=== PATIENT | male | born 1955 | race Asian ===

== ENCOUNTER → 2016-12-27 | Outpatient (CLI) | payer OTHER | END | disposition home or self-care (01) | LOC: CT 11:01 | PROC: BW28ZZZ Computerized Tomography (CT Scan) of Head (ICD-10-PCS; principal; 2016-12-27) | PROC: BW20ZZZ Computerized Tomography (CT Scan) of Abdomen (ICD-10-PCS; 2016-12-27) | DX: R41.3 Other amnesia (principal); K75.9 Inflammatory liver disease, unspecified ==

== ENCOUNTER → 2017-01-14 | Outpatient (CLI) | payer OTHER | END | disposition home or self-care (01) | LOC: MI 08:35 | PROC: B030ZZZ Magnetic Resonance Imaging (MRI) of Brain (ICD-10-PCS; principal; 2017-01-14) | DX: R41.3 Other amnesia (principal); R47.02 Dysphasia; R51 Headache ==

== ENCOUNTER → 2017-01-18 | Outpatient (CLI) | payer OTHER | END | disposition home or self-care (01) | LOC: RD 18:20 | PROC: BW24ZZZ Computerized Tomography (CT Scan) of Chest and Abdomen (ICD-10-PCS; principal; 2017-01-18) | DX: Z87.891 Personal history of nicotine dependence (principal) ==

== ENCOUNTER → 2017-01-22 | Outpatient (CLI) | payer OTHER | END | disposition home or self-care (01) | LOC: LB 19:06 | DX: B19.10 Unspecified viral hepatitis B without hepatic coma (principal) ==

== ENCOUNTER 2017-02-10 19:14 | Inpatient (IN) | payer OTHER ==
[~2017-02-10] VITALS: Ht 170.2 cm; Wt 60.3 kg
[2017-02-10 20:39] LABS: BASOPHIL % 0.4 % (0-2); PLATELET COUNT 198 x10^3mcL (130-400)
[2017-02-10 20:40] LABS: RED CELL DISTRIBUTION WIDTH 14.9 % (11.5-14.5)
--- NOTE | 2017-02-10 20:45 | NUR ---
PT TO ED VIA TRIAGE FOR C/O CP SINCE 1500 TODAY STATES RESOLVED NOW HAD PRESSURE IN CENTER OF CHEST, NO CARDIAC HX, NO TRAUMA, NO MEDICATIONS. PT ON MONITOR VSS, EKG DONE, XRAY DONE LABS DRAWN AWAIT FURTHER ORDERS AND DISPO.
[2017-02-10 20:50] LABS: CALCIUM 9.4 mg/dL (8.5-10.1); CARBON DIOXIDE 29.4 mmol/L (21-32); CHLORIDE SERUM 106 mmol/L (98-107); CREATININE SERUM 0.9 mg/dL (0.7-1.3); GFR1 > 60 mL/min; GLUCOSE SERUM 141 mg/dL (74-106); POTASSIUM SERUM 4.5 mmol/L (3.5-5.1); SODIUM SERUM 142 mmol/L (136-145)
[2017-02-10 20:54] LABS: ALBUMIN 3.8 g/dL (3.4-5.0); ALKALINE PHOSPHATASE 61 U/L (46-116); ALT/SGPT 32 U/L (16-63); AST/SGOT 20 U/L (15-37); BILIRUBIN TOTAL 0.3 mg/dL (0.20-1.00); TOTAL PROTEIN, SERUM 7.5 g/dL (6.4-8.2)
--- NOTE | 2017-02-10 21:07 | NUR ---
SL STARTED ALL ORDERS DONE PER MD CONT TO MONITOR PT NO C/O PAIN AT THIS TIME VSS
--- NOTE | 2017-02-10 21:19 | NUR ---
PT MEDICATED PER MD CRITICAL RESULTS GIVEN TO MD TROPONIN ELEVATED PER LAB, 0.591
--- NOTE | 2017-02-10 22:30 | NUR ---
PT RESTING, DENIES PAIN VSS, AWAIT BED CONT TO MONITOR
[2017-02-10] MEDS ORDERED: METFORMIN (23:25)
[2017-02-10] MEDS ORDERED: LOSARTEN PO (23:26)
[2017-02-10] MEDS ORDERED: GLIPIZIDE (23:26)
[2017-02-10] MEDS ORDERED: METFORMIN PO (23:27)
--- NOTE | 2017-02-10 23:29 | NUR ---
REPORT CALLED TO [facility], ALL QUESTIONS ASKED AND ANSWERED, PT TRANSFERED TO FLOOR IN STABLE CONDITION VIA [facility] ON MONITOR WITH RN AND ALL PERSONAL BELONGINGS
[2017-02-10 23:32] LABS: PHOSPHOROUS 3.4 mg/dL (2.5-4.9)
[2017-02-10 23:47] VITALS: BP 136/72
[2017-02-10 23:49] LABS: FREE THYROXINE INDEX 2.6 ug/dL (1.4-4.5); T4(THYROXINE) 6.9 ug/dL (4.7-13.3)
--- NOTE | 2017-02-11 00:03 | NUR ---
RECEIVED PT FROM ER VIA [facility] ACCOMPANIED WITH NURSE, EMT AND PT'S , PT SEEN, ALERT AND ORIENTED, DENIES HEADACHE OR DIZZINESS, BREATHING EVEN AND UNLABORED, NO SOB, LUNG SOUNDS CLEAR, ON O2 2L VIA NC WITH NO RESP DISTRESS NOTED, ON TELE#22 NSR/SA, DENIES CHEST PAIN BUT PT WITH ELEVATED TROP, SL TO RAC, PULSES PALPABLE, NO EDEMA NOTED, SCD TO BLE, AMBULATORY WITH STEADY GAIT, ABD SOFT AND FLAT WITH ACTIVE BS, NO BM AT THIS TIME, DENIES ANY PROBLEM WITH VOIDING, PRIMARY NURSE-LOVELEE AT BEDSIDE WITH CONT CARE.
[2017-02-11 00:16] LABS: T3 TOTAL 0.92 ng/mL
[2017-02-11] MEDS ORDERED: GLYBURIDE2.5 MG PO (00:24)
--- NOTE | 2017-02-11 02:00 | NUR ---
PT STARTED ON IV HEPARIN WITH LOADING DOSE OF 3,600 UNITS. IV HEPARIN INFUSING AT 700 UNITS/HR. IV NS INFUSING WELL AT 100 ML/HR. DENIES ANY CHEST PAIN AT THIS TIME. REMAINS ON O2 2L VIA NC. NO S/S OF DISTRESS OR DISCOMFORT NOTED. CALL LIGHT WITHIN REACH. WILL CONTINUE TO MONITOR.
--- NOTE | 2017-02-11 04:04 | NUR ---
DR. MOE NOTIFIED AND AWARE OF CT ABD/PELVIS RESULTS.
[2017-02-11 05:34] VITALS: BP 100/64
--- NOTE | 2017-02-11 06:02 | NUR ---
PT SLEPT WELL THROUGH THE NIGHT. REMAINS ON O2 2L VIA NC. NO S/S OF RESPIRATORY DISTRESS NOTED. AWAKE AND ALERT AT THIS TIME. VERBAL WITH CLEAR SPEECH. DENIES ANY CHEST PAIN. IV HEPARIN AND NS INFUSING WELL. NO S/S OF DISTRESS NOTED. CALL LIGHT WITHIN REACH. WILL CONTINUE TO MONITOR.
--- NOTE | 2017-02-11 06:55 | NUR ---
RECEIVED CRITICAL LAB TROP 0.554. DR. NAIR GIVEN COPY OF LAB RESULT, NOTIFIED AND AWARE.
--- NOTE | 2017-02-11 07:48 | NUR ---
A+OX4, DENIES CHEST PAIN, PAIN IN GENERAL, NAUSEA, SOB, AND HEADACHE, NO RESPIRATORY DISTRESS NOTED, TELE 22, PULSES MODERATE AND EQUAL ANSELMO, NO EDEMA PRESENT, LUNG SOUNDS CTA, 2 L NC, BOWEL SOUNDS ACTIVE, VOIDING VIA URINAL, AMBULATORY, SKIN INTACT, IV IN RAC WITH NS @ 100 ML/HR, SITE WNL, HEPARIN DRIP @ 700 UNITS/HR, TROP 0.554, A1C 7.5.
--- NOTE | 2017-02-11 07:54 | NUR ---
A+OX3, CONFUSED, YAVAPAI-APACHE BOTH EARS, NO RESPIRATORY DISTRESS NOTED, IN NO APPARANT PAIN, TELE 31, PULSES MODERATE AND EQUAL ANSELMO, NO EDEMA PRESENT, SCDS ON, LUNG SOUNDS DIMINISHED, TOLERATING RA, BOWEL SOUNDS HYPOACTIVE, INCONTINENT, GENERALIZED WEAKNESS, [place] BUTTOCKS, PROGRESSIVE CARE MANAGER, Z GUARD BEING USED, IV IN RFA WITH NS @ 80 ML/HR, SITE WNL, MG 2.9, WBC 22.2, RBC 3.69, HGB 11.1, HCT 35.
--- NOTE | 2017-02-11 09:52 | NUR ---
PT RESTING IN BED, DENIES CHEST PAIN AND SOB, AMBULATED TO BATHROOM AND BACK TO BED, NO RESPIRATORY DISTRESS NOTED. BROTHER AT BEDSIDE
--- NOTE | 2017-02-11 10:31 | NUR ---
PTT 54.2, NO CHANGE TO HEPARIN DRIP. HEPARIN DRIP WILL REMAIN AT 700 UNITS/HR.
--- NOTE | 2017-02-11 10:38 | NUR ---
PT RESTING IN BED, NO RESPIRATORY DISTRESS NOTED, DENIES CHEST PAIN AND SOB.
[2017-02-11 10:48] VITALS: BP 121/73
[2017-02-11 11:03] LABS: BASOPHIL % 0.3 % (0-2); PLATELET COUNT 182 x10^3mcL (130-400)
[2017-02-11 11:06] LABS: RED CELL DISTRIBUTION WIDTH 14.6 % (11.5-14.5)
[2017-02-11 11:24] LABS: CALCIUM 8.7 mg/dL (8.5-10.1); CARBON DIOXIDE 27.1 mmol/L (21-32); CHLORIDE SERUM 108 mmol/L (98-107); CREATININE SERUM 0.8 mg/dL (0.7-1.3); GFR1 > 60 mL/min; GLUCOSE SERUM 150 mg/dL (74-106); PHOSPHOROUS 3.3 mg/dL (2.5-4.9); POTASSIUM SERUM 4.3 mmol/L (3.5-5.1); SODIUM SERUM 143 mmol/L (136-145)
--- NOTE | 2017-02-11 11:32 | NUR ---
PT AMBULATED TO BATHROOM AND BACK TO BED, NO RESPIRATORY DISTRESS NOTED, DENIES CHEST PAIN AND SOB, FAMILY AT BEDSIDE AWAITING DR CLOUD.
--- NOTE | 2017-02-11 13:35 | NUR ---
PT RESTING IN BED, NO RESPIRATORY DISTRESS NOTED, DENIES CHEST PAIN AND SOB.
--- NOTE | 2017-02-11 14:24 | NUR ---
PTT 39.0, PER HEPARIN PROTOCOL PT REBOLUSED 2400 UNITS, AND HEPARIN DRIP INCREASED BY 100 UNITS/HR FROM 700 UNITS/HR TO 800 UNITS/HOUR.
[2017-02-11 14:30] VITALS: BP 137/84
--- NOTE | 2017-02-11 14:45 | NUR ---
PT RESTING IN BED, NO RESPIRATORY DISTRESS NOTED, DENIES CHEST PAIN AND SOB.
--- NOTE | 2017-02-11 15:41 | NUR ---
PT RESTING IN BED, NO RESPIRATORY DISTRESS NOTED, DENIES CHEST PAIN AND SOB. SON AT BEDSIDE INQUIRING ABOUT DR CLOUD.
--- NOTE | 2017-02-11 17:14 | NUR ---
PT RESTING IN BED, NO RESPIRATORY DISTRESS NOTED, DR CLOUD IN TO SPEAK TO PT AND FAMILY.
[2017-02-11 17:27] VITALS: BP 144/83
--- NOTE | 2017-02-11 17:48 | NUR ---
PT RESTING IN BED, NO RESPIRATORY DISTRESS NOTED, DENIES CHEST PAIN AND SOB.
--- NOTE | 2017-02-11 18:11 | NUR ---
PTT 72.3, PER HEPARIN PROTOCOL, HEPARIN DRIP REDUCED BY 100 UNITS/HR FROM 800 UNITS TO 700 UNITS/HR.
--- NOTE | 2017-02-11 18:15 | NUR ---
PT RESTING IN BED, NO RESPIRATORY DISTRESS NOTED, DENIES CHEST PAIN AND SOB.
--- NOTE | 2017-02-11 19:35 | NUR ---
RECEIVED PT ALERT AND AWAKE. RESTING IN BED WITH HOB SLIGHTLY ELEVATED. VERBAL WITH CLEAR SPEECH. AOX4. NO S/S OF RESPIRATORY DISTRESS NOTED. LUNGS CLEAR BILATERALLY. ON TELE 22, NSR. DENIES ANY CHEST PAIN AT THIS TIME. ABD SOFT AND FLAT. SKIN WARM AND DRY. IV PATENT AND INTACT TO RIGHT AC. IV HEPARIN INFUSING WELL AT 700 ML/HR. AWAITING LAB DRAW AND RESULTS FOR NEXT PTT. NO EDEMA NOTED. SCDS IN PLACE. DENIES ANY PAIN OR DISCOMFORT AT THIS TIME. NO S/S OF DISTRESS NOTED. CALL LIGHT WITHIN REACH. WILL CONTINUE TO MONITOR.
[2017-02-11 20:57] VITALS: BP 127/70
[2017-02-11 21:23] LABS: microscopic required? NO
[2017-02-11 21:40] LABS: UA SPECIFIC GRAVITY <=1.005 (1.005-1.035); urine erythrocyte NEGATIVE (NEGATIVE)
--- NOTE | 2017-02-11 22:30 | NUR ---
PT RESTING IN BED WITH EYES CLOSED. BREATHING EQUAL AND UNLABORED. NO S/S OF RESPIRATORY DISTRESS NOTED ON ROOM AIR. LAB RESULTS FOR PTT 59.2. WITHIN THERAPEUTIC RANGE; NO CHANGE AT THIS TIME. IV HEPARIN INFUSING WELL AT 700 UNITS/HR TO RIGHT AC. NO S/S OF DISTRESS NOTED. RESTING COMFORTABLY WITH RELAXED FACIAL FEATURES. CALL LIGHT WITHIN REACH. WILL CONTINUE TO MONITOR. DR. MOE NOTIFIED AND AWARE OF RECENT PTT RESULTS.
[2017-02-12] VITALS (7 sets, daily range): BP systolic 128–169; BP diastolic 74–84; Ht 170.2 cm; Wt 60.3 kg
--- NOTE | 2017-02-12 03:15 | NUR ---
NOTED PTT LAB RESULT 47.3; NO CHANGE AT THIS TIME. SECOND THERAPEUTIC RESULT. IV HEPARIN INFUSING WELL AT 700 ML/HR. DR. MOE NOTIFIED AND AWARE.
[2017-02-12 06:44] LABS: PLATELET COUNT 180 x10^3mcL (130-400)
--- NOTE | 2017-02-12 06:45 | NUR ---
PT SLEPT WELL THROUGH THE NIGHT. EASILY AROUSED WHEN NAME CALLED. ALERT AND VERBAL WITH CLEAR SPEECH. IV HEPARIN INFUSING TO RIGHT AC AT 700 UNITS/HR. ADDITIONAL IV STARTED TO RIGHT FA. DENIES ANY CHEST PAIN OR DISCOMFORT AT THIS TIME. REMAINS NPO FOR RIGHT AND LEFT CARDIAC CATHERIZATION SCHEDULED TODAY. NO S/S OF DISTRESS NOTED. CALL LIGHT WITHIN REACH. WILL CONTINUE TO MONITOR.
[2017-02-12 06:51] LABS: RED CELL DISTRIBUTION WIDTH 14.6 % (11.5-14.5)
[2017-02-12 06:59] LABS: CALCIUM 9.3 mg/dL (8.5-10.1); CARBON DIOXIDE 30.2 mmol/L (21-32); CHLORIDE SERUM 106 mmol/L (98-107); GFR1 > 60 mL/min; GLUCOSE SERUM 132 mg/dL (74-106); POTASSIUM SERUM 4.3 mmol/L (3.5-5.1); SODIUM SERUM 142 mmol/L (136-145)
--- NOTE | 2017-02-12 08:00 | NUR ---
ALERT AND ORIENTED. TELE #22. PULSES PRESENT AND EQUAL, NO EDEMA NOTED. LUNG SOUNDS CTA, DENIES CHEST PAIN. BS ACTIVE LBM 02/12/17, REPORTS NORMAL FOR PATIENT. VOIDS FREELY, BRP, ABLE TO MOVE ALL ETREMETIES. SKIN WARM DRY AND INTACT. REPORTS NO PAIN AT THIS TIME.IV TO RAC AND RFA, WNL. HEPARIN 700 UNITS RUNNING TO RAC, RFA SL
--- NOTE | 2017-02-12 08:54 | NUR ---
IV HEPARIN STOPPED PER DR ORDERS. IV RAC SL, WNL
--- NOTE | 2017-02-12 10:11 | NUR ---
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 DR. ESPINOZA MADE AWARE
--- NOTE | 2017-02-12 11:40 | NUR ---
PRE OP CHECKLIST DONE, IV D/C RFA, CATHETER INTACT, IV INSERTED IN LAC, PATENT AND INTACT. CHG WASH DONE ON EXREMETIES. REPORT GIVEN TO ABRASIVE GRADER NURSE, CHART WITH PATIENT, PATIENT GOING DOWN TO PROCEDURE
--- NOTE | 2017-02-12 14:00 | NUR ---
RECIEVED PATIENT BACK FROM [facility]ER[facility] TILE INSTALL[facility], NO DISTRESS NOTED, CMS PRESENT EQUALLY BUE, NO BLEEDING TO RIGHT WRIST NOTED, TR BAND RIGHT WRIST WITH WRIST GUARD ON WITH 16 OF AIR
[2017-02-12] MEDS ORDERED: HEP100I IV (16:24)
[2017-02-12] MEDS ORDERED: NIT0.4 SL ×2 (16:25→16:26)
[2017-02-12] MEDS ORDERED: HEP5I IV (16:25)
[2017-02-12] MEDS ORDERED: LIPI10 PO (16:25)
[2017-02-12] MEDS ORDERED: METOPROLOL TART25 M1 PO (16:26)
[2017-02-12] MEDS ORDERED: COZ50 PO (16:26)
[2017-02-12] MEDS ORDERED: APAP/HYDROCODON1 T13 PO (16:27)
[2017-02-12] MEDS ORDERED: MOR2I IV (16:27)
[2017-02-12] MEDS ORDERED: ECO81 PO (16:27)
[2017-02-12] MEDS ORDERED: BG FS (16:28)
[2017-02-12] MEDS ORDERED: AMB5 PO (16:28)
[2017-02-12] MEDS ORDERED: TYL325 PO (16:28)
[2017-02-12] MEDS ORDERED: DEXPF IV (16:28)
[2017-02-12] MEDS ORDERED: ZOFI IV (16:29)
[2017-02-12] MEDS ORDERED: LAC PO (16:29)
[2017-02-12] MEDS ORDERED: COL100 PO (16:29)
[2017-02-12] MEDS ORDERED: METFORMIN HCL1000 MG PO (16:29)
[2017-02-12] MEDS ORDERED: DIA2.5 PO (16:30)
[2017-02-12] MEDS ORDERED: LEVEMIR100 U/M1 SC (16:30)
[2017-02-12] MEDS ORDERED: HUMULIN R100 U/1 M1 SC (16:30)
[2017-02-12] MEDS ORDERED: THERA TABS1 TAB PO (16:31)
[2017-02-12] MEDS ORDERED: SYN25 PO (16:31)
--- NOTE | 2017-02-12 16:35 | NUR ---
8ML OF AIR TAKEN OUT SLOWY WITH SYRINGE, NO BEEDING NOTED. LET 5 MINUTES PASS AND LAST 8ML OF AIR TAKEN OUT. NO BLEEDING NOTED. CMS PRESENT TO E EQUALLY. PATIENT DENIES CHEST PAIN. IV FLUIDS TO LEFT AC, NS @100, SITE WNL
--- NOTE | 2017-02-12 16:45 | NUR ---
SPOKE WITH DR ESPINOZA AND INFORMED THAT TR BAND WAS REMOVED AND NO BLEEDING AT PUNCTURE SITE. PATIENT DENIED NUMBNESS, TINGLING OR PAIN AT RT ARM. ARM BOARD REMAINED IN PLACED. DR ESPINOZA MADE AWARE THAT PER HEMANT -CUSTOM CLOTHIER, PATIENT WILL BE TRANSFERRED TO [facility] AT 18:[address] ESPINOZA WHO CHECKED WITH DR LIANG NO HEPARIN DRIP TO CONTINUE AT THIS TIME AND NO HEPARIN FOR THE DURATION OF TRANSPORT. CUSTOM CLOTHIER HEMANT NOTIFIED. ATTENDING NURSE VANESSA AWARE. PATIENT AND PATIENT FAMILY INFORMED ABOUT TRANSFER ARRANGEMENTS.
[2017-02-12] MEDS ORDERED: HIB240 TP (17:22)
[2017-02-12] MEDS ORDERED: BACTROBAN21 (17:22)
--- NOTE | 2017-02-12 17:39 | NUR ---
CMS PRESENT BUE AND BLE, PULSE EQUAL AND STRONG X4, BANDAID ON RIGHT WRIST CDI. DENEIS NUMBNESS AND TINGLING
--- NOTE | 2017-02-12 18:48 | NUR ---
PATIENT LEAVING WITH [facility] FOR TRANSFER. WITNESS CONSENT TO TRANSFER. BELONGINGS WITH PATIENT. CMS PRESENT ON ALL EXTREMETIES PULSES STONG AND EQUAL. DENIES CHEST PAIN. TRANFER PAPERWORK WITH PATIENT.
== END 2017-02-12 18:35 | disposition short-term general hospital (02) | DRG 282 ==
LOC: ED 19:14 → DU 21:55
PROVIDERS: Emergency Medicine; Internal Medicine Interventional Cardiology; ADMIT Family Medicine
PROC: B2111ZZ Fluoroscopy of Multiple Coronary Arteries using Low Osmolar Contrast (ICD-10-PCS; 2017-02-12)
PROC: B2151ZZ Fluoroscopy of Left Heart using Low Osmolar Contrast (ICD-10-PCS; 2017-02-12)
PROC: 4A023N7 Measurement of Cardiac Sampling and Pressure, Left Heart, Percutaneous Approach (ICD-10-PCS; principal; 2017-02-12 12:00)
DX: I21.4 Non-ST elevation (NSTEMI) myocardial infarction (principal); E11.65 Type 2 diabetes mellitus with hyperglycemia; Z79.84 Long term (current) use of oral hypoglycemic drugs; Z87.891 Personal history of nicotine dependence; Z68.20 Body mass index [BMI] 20.0-20.9, adult; D64.9 Anemia, unspecified; I10 Essential (primary) hypertension; Z79.899 Other long term (current) drug therapy; E02 Subclinical iodine-deficiency hypothyroidism; Z83.3 Family history of diabetes mellitus; I34.0 Nonrheumatic mitral (valve) insufficiency; I25.10 Atherosclerotic heart disease of native coronary artery without angina pectoris; Z22.322 Carrier or suspected carrier of Methicillin resistant Staphylococcus aureus
CPT/HCPCS: CLHCL; 83880; 84439; C1769; C1887; C1894; J1642; J1644; J1815; J2001; J2250; J3010; J3490; J7030; J7040; Q0092; Q9967

== ENCOUNTER → 2017-02-10 | Outpatient (CLI) | payer OTHER ==
[~2017-02-10] MED LIST: GLIPIZIDE; GLYBURIDE2.5 MG PO; LOSARTEN PO; METFORMIN; METFORMIN PO
== END | disposition home or self-care (01) ==
LOC: LB 16:18
DX: B19.10 Unspecified viral hepatitis B without hepatic coma (principal)

== ENCOUNTER → 2017-04-01 | Outpatient (CLI) | payer OTHER ==
[~2017-04-01] MED LIST changes: +AMB5 PO; +APAP/HYDROCODON1 T13 PO; +BACTROBAN21; +BG FS; +COL100 PO; +COZ50 PO; +DEXPF IV; +DIA2.5 PO; +ECO81 PO; +HEP100I IV; +HEP5I IV; +HIB240 TP; +HUMULIN R100 U/1 M1 SC; +LAC PO; +LEVEMIR100 U/M1 SC; +LIPI10 PO; +METFORMIN HCL1000 MG PO; +METOPROLOL TART25 M1 PO; +MOR2I IV; +NIT0.4 SL; +SYN25 PO; +THERA TABS1 TAB PO; +TYL325 PO; +ZOFI IV
[2017-04-01 08:27] LABS: BASOPHIL % 0.5 % (0-2); PLATELET COUNT 181 x10^3mcL (130-400); RED CELL DISTRIBUTION WIDTH 13.9 % (11.5-14.5)
[2017-04-01 08:45] LABS: ALBUMIN 4.1 g/dL (3.4-5.0); ALKALINE PHOSPHATASE 45 U/L (46-116); ALT/SGPT 32 U/L (16-63); AST/SGOT 22 U/L (15-37); BILIRUBIN TOTAL 0.68 mg/dL (0.20-1.00); CALCIUM 9.5 mg/dL (8.5-10.1); CARBON DIOXIDE 29.1 mmol/L (21-32); CHLORIDE SERUM 106 mmol/L (98-107); GFR1 > 60 mL/min; GLUCOSE SERUM 183 mg/dL (74-106); HDL CHOLESTEROL 45 mg/dL (40-60); POTASSIUM SERUM 4.5 mmol/L (3.5-5.1); SODIUM SERUM 142 mmol/L (136-145); TOTAL PROTEIN, SERUM 7.4 g/dL (6.4-8.2); TRIGLYCERIDES 63 mg/dL (<150)
[2017-04-01 08:52] LABS: CHOLESTEROL 87 mg/dL (<200); CHOLESTEROL/HDL RATIO 1.9
== END | disposition home or self-care (01) ==
LOC: LB 07:47
DX: I10 Essential (primary) hypertension (principal); E78.2 Mixed hyperlipidemia

== ENCOUNTER → 2017-07-20 | Outpatient (CLI) | payer OTHER ==
[2017-07-20 08:19] LABS: BASOPHIL % 0.4 % (0-2); PLATELET COUNT 242 x10^3mcL (130-400)
[2017-07-20 08:36] LABS: ALBUMIN 3.6 g/dL (3.4-5.0); ALKALINE PHOSPHATASE 48 U/L (46-116); ALT/SGPT 34 U/L (16-63); AST/SGOT 20 U/L (15-37); BILIRUBIN TOTAL 0.3 mg/dL (0.20-1.00); CALCIUM 8.9 mg/dL (8.5-10.1); CARBON DIOXIDE 28.9 mmol/L (21-32); CHLORIDE SERUM 103 mmol/L (98-107); CREATININE SERUM 0.9 mg/dL (0.7-1.3); GFR1 > 60 mL/min; GLUCOSE SERUM 156 mg/dL (74-106); HDL CHOLESTEROL 41 mg/dL (40-60); SODIUM SERUM 140 mmol/L (136-145)
[2017-07-20 08:38] LABS: CHOLESTEROL 89 mg/dL (<200); CHOLESTEROL/HDL RATIO 2.2; TRIGLYCERIDES 27 mg/dL (<150)
[2017-07-20 08:58] LABS: RED CELL DISTRIBUTION WIDTH 15.1 % (11.5-14.5)
== END | disposition home or self-care (01) ==
LOC: US 07:44
PROVIDERS: Internal Medicine Gastroenterology
PROC: BW40ZZZ Ultrasonography of Abdomen (ICD-10-PCS; principal; 2017-07-20)
DX: I10 Essential (primary) hypertension (principal); E78.2 Mixed hyperlipidemia

== ENCOUNTER → 2017-07-26 | Outpatient (CLI) | payer OTHER | END | disposition home or self-care (01) | LOC: LB 15:04 | DX: Z00.00 Encounter for general adult medical examination without abnormal findings (principal) | CPT/HCPCS: 84153 ==

== ENCOUNTER → 2017-10-05 | Outpatient (CLI) | payer OTHER ==
[2017-10-05 08:16] LABS: microscopic required? NO
[2017-10-05 08:35] LABS: CALCIUM 9.9 mg/dL (8.5-10.1); CARBON DIOXIDE 28.6 mmol/L (21-32); CHLORIDE SERUM 108 mmol/L (98-107); CREATININE SERUM 0.9 mg/dL (0.7-1.3); GFR1 > 60 mL/min; GLUCOSE SERUM 216 mg/dL (74-106); POTASSIUM SERUM 5.2 mmol/L (3.5-5.1); SODIUM SERUM 142 mmol/L (136-145)
[2017-10-05 08:56] LABS: BASOPHIL % 0.4 % (0-2); PLATELET COUNT 241 x10^3mcL (130-400); RED CELL DISTRIBUTION WIDTH 14.2 % (11.5-14.5)
[2017-10-05 09:52] LABS: UA SPECIFIC GRAVITY 1.015 (1.005-1.035); urine erythrocyte NEGATIVE (NEGATIVE)
== END | disposition home or self-care (01) ==
LOC: LB 07:47
DX: E11.9 Type 2 diabetes mellitus without complications (principal); I10 Essential (primary) hypertension; R50.9 Fever, unspecified

== ENCOUNTER → 2018-05-10 | Outpatient (CLI) | payer OTHER ==
[2018-05-10 08:52] LABS: ALKALINE PHOSPHATASE 47 U/L (46-116); ALT/SGPT 45 U/L (16-63); AST/SGOT 25 U/L (15-37); BILIRUBIN TOTAL 0.5 mg/dL (0.20-1.00); CALCIUM 9.7 mg/dL (8.5-10.1); CARBON DIOXIDE 28.8 mmol/L (21-32); CHLORIDE SERUM 103 mmol/L (98-107); GFR1 > 60 mL/min; GLUCOSE SERUM 221 mg/dL (74-106); POTASSIUM SERUM 4.7 mmol/L (3.5-5.1); SODIUM SERUM 140 mmol/L (136-145); TOTAL PROTEIN, SERUM 7.4 g/dL (6.4-8.2)
== END | disposition home or self-care (01) ==
LOC: US 07:57
PROC: B44HZZZ Ultrasonography of Bilateral Lower Extremity Arteries (ICD-10-PCS; principal; 2018-05-10)
PROC: B345ZZZ Ultrasonography of Bilateral Common Carotid Arteries (ICD-10-PCS; 2018-05-10)
PROC: B348ZZZ Ultrasonography of Bilateral Internal Carotid Arteries (ICD-10-PCS; 2018-05-10)
DX: R47.01 Aphasia (principal); E11.9 Type 2 diabetes mellitus without complications

== ENCOUNTER → 2018-07-05 | Outpatient (CLI) | payer OTHER ==
[2018-07-05 09:43] LABS: BASOPHIL % 0.3 % (0-2); PLATELET COUNT 217 x10^3mcL (130-400)
[2018-07-05 09:45] LABS: RED CELL DISTRIBUTION WIDTH 14.7 % (11.5-14.5)
[2018-07-05 10:20] LABS: ALKALINE PHOSPHATASE 46 U/L (46-116); ALT/SGPT 38 U/L (16-63); AST/SGOT 26 U/L (15-37); BILIRUBIN TOTAL 0.4 mg/dL (0.20-1.00); CALCIUM 9.7 mg/dL (8.5-10.1); CARBON DIOXIDE 27.9 mmol/L (21-32); CHLORIDE SERUM 104 mmol/L (98-107); CHOLESTEROL 144 mg/dL (<200); CHOLESTEROL/HDL RATIO 3.3; CREATININE SERUM 1.1 mg/dL (0.7-1.3); GFR1 > 60 mL/min; GLUCOSE SERUM 191 mg/dL (74-106); HDL CHOLESTEROL 43 mg/dL (40-60); POTASSIUM SERUM 4.6 mmol/L (3.5-5.1); SODIUM SERUM 138 mmol/L (136-145); TOTAL PROTEIN, SERUM 7.3 g/dL (6.4-8.2); TRIGLYCERIDES 44 mg/dL (<150)
== END | disposition home or self-care (01) ==
LOC: LB 09:06
DX: E11.9 Type 2 diabetes mellitus without complications (principal); I10 Essential (primary) hypertension; E78.5 Hyperlipidemia, unspecified; R53.83 Other fatigue; Z12.11 Encounter for screening for malignant neoplasm of colon
CPT/HCPCS: 84153

== ENCOUNTER → 2018-07-12 | Outpatient (CLI) | payer OTHER | END | disposition home or self-care (01) | LOC: US 08:54 | PROC: BV44ZZZ Ultrasonography of Scrotum (ICD-10-PCS; principal; 2018-07-12) | DX: N44.2 Benign cyst of testis (principal) ==

== ENCOUNTER → 2018-10-04 | Outpatient (CLI) | payer OTHER ==
[2018-10-04 09:30] LABS: BASOPHIL % 0.4 % (0-2); PLATELET COUNT 234 x10^3mcL (130-400)
[2018-10-04 09:31] LABS: RED CELL DISTRIBUTION WIDTH 15.5 % (11.5-14.5)
[2018-10-04 09:42] LABS: ALBUMIN 4.1 g/dL (3.4-5.0); ALKALINE PHOSPHATASE 59 U/L (46-116); ALT/SGPT 39 U/L (16-63); AST/SGOT 25 U/L (15-37); BILIRUBIN TOTAL 0.5 mg/dL (0.20-1.00); CALCIUM 9.6 mg/dL (8.5-10.1); CARBON DIOXIDE 26.9 mmol/L (21-32); CHLORIDE SERUM 102 mmol/L (98-107); CREATININE SERUM 1.1 mg/dL (0.7-1.3); GFR1 > 60 mL/min; GLUCOSE SERUM 149 mg/dL (74-106); HDL CHOLESTEROL 45 mg/dL (40-60); POTASSIUM SERUM 4.3 mmol/L (3.5-5.1); SODIUM SERUM 138 mmol/L (136-145); TOTAL PROTEIN, SERUM 7.5 g/dL (6.4-8.2); TRIGLYCERIDES 47 mg/dL (<150)
[2018-10-04 09:52] LABS: CHOLESTEROL 134 mg/dL (<200)
[2018-10-04 10:10] LABS: FREE T4 1.01 ng/dL (0.76-1.46); FREE THYROXINE INDEX 2.1 ug/dL (1.4-4.5); T4(THYROXINE) 6.4 ug/dL (4.7-13.3)
[2018-10-04 10:44] LABS: T3 TOTAL 1.21 ng/mL
== END | disposition home or self-care (01) ==
LOC: LB 08:57
DX: E11.9 Type 2 diabetes mellitus without complications (principal); R53.83 Other fatigue
CPT/HCPCS: 84439

== ENCOUNTER → 2019-03-02 | Outpatient (CLI) | payer OTHER ==
[2019-03-02 09:43] LABS: ALKALINE PHOSPHATASE 65 U/L (46-116); ALT/SGPT 32 U/L (16-63); AST/SGOT 22 U/L (15-37); BILIRUBIN TOTAL 0.4 mg/dL (0.20-1.00); CALCIUM 9.5 mg/dL (8.5-10.1); CARBON DIOXIDE 28.4 mmol/L (21-32); CHLORIDE SERUM 104 mmol/L (98-107); CHOLESTEROL 143 mg/dL (<200); CHOLESTEROL/HDL RATIO 3.7; CREATININE SERUM 1.1 mg/dL (0.7-1.3); GFR1 > 60 mL/min; GLUCOSE SERUM 132 mg/dL (74-106); HDL CHOLESTEROL 39 mg/dL (40-60); POTASSIUM SERUM 4.6 mmol/L (3.5-5.1); SODIUM SERUM 140 mmol/L (136-145); TOTAL PROTEIN, SERUM 7.5 g/dL (6.4-8.2); TRIGLYCERIDES 55 mg/dL (<150)
[2019-03-02 12:35] LABS: IRON 28 ug/dL (65-170); TOTAL IRON BINDING CAPACITY 483 ug/dL (250-450)
== END | disposition home or self-care (01) ==
LOC: LB 08:32
DX: E78.2 Mixed hyperlipidemia (principal); E55.9 Vitamin D deficiency, unspecified
CPT/HCPCS: 82390; 83516

== ENCOUNTER → 2020-04-29 | Outpatient (CLI) | payer OTHER ==
[2020-04-29 08:31] LABS: microscopic required? NO
[2020-04-29 09:01] LABS: BASOPHIL % 0.6 % (0-2); PLATELET COUNT 161 x10^3mcL (130-400); RED CELL DISTRIBUTION WIDTH 13.7 % (11.5-14.5)
[2020-04-29 09:07] LABS: UA SPECIFIC GRAVITY 1.015 (1.005-1.035); urine erythrocyte NEGATIVE (NEGATIVE)
[2020-04-29 09:24] LABS: ALKALINE PHOSPHATASE 64 U/L (46-116); ALT/SGPT 34 U/L (16-63); AST/SGOT 20 U/L (15-37); BILIRUBIN TOTAL 0.6 mg/dL (0.20-1.00); CALCIUM 9.9 mg/dL (8.5-10.1); CARBON DIOXIDE 25.4 mmol/L (21-32); CHLORIDE SERUM 105 mmol/L (98-107); CHOLESTEROL 138 mg/dL (<200); CHOLESTEROL/HDL RATIO 3.5; CREATININE SERUM 0.9 mg/dL (0.7-1.3); GFR1 > 60 mL/min; GLUCOSE SERUM 136 mg/dL (74-106); HDL CHOLESTEROL 40 mg/dL (40-60); POTASSIUM SERUM 4.1 mmol/L (3.5-5.1); SODIUM SERUM 140 mmol/L (136-145); TRIGLYCERIDES 53 mg/dL (<150)
[2020-04-29 09:34] LABS: T3 TOTAL 1.35 ng/mL
[2020-04-29 10:12] LABS: FREE T4 0.98 ng/dL (0.76-1.46); FREE THYROXINE INDEX 2.7 ug/dL (1.4-4.5); T4(THYROXINE) 7.6 ug/dL (4.7-13.3)
[2020-04-29 14:07] LABS: ERYTHROCYTE SED RATE 0 mm/hr (0-20)
[2020-04-30 13:05] LABS: microalbumin:creatinine ratio < 8 (0-29)
== END | disposition home or self-care (01) ==
LOC: LB 08:13
DX: N39.0 Urinary tract infection, site not specified (principal); R41.3 Other amnesia
CPT/HCPCS: 84153; 84439